=== PATIENT | male | born 1995 | race Caucasian/White ===

== ENCOUNTER 2017-01-14 13:47 | Emergency (ER) | payer BC, OTHER ==
[~2017-01-14] VITALS: Ht 177.8 cm; Wt 79.4 kg
[~2017-01-14 13:47] MED LIST: DOXY100C2 PO; MINO100C2 PO
--- NOTE | 2017-01-14 14:45 | ED GU-Male ---
General Chief Complaint: -Male Stated Complaint: ABD AND TESTICULAR PAIN Source: patient Exam Limitations: no limitations History of Present Illness Time seen by provider: 14:30 Initial Comments Here with complaint of right testicle pain that has been going on for 24 hours intermittently. Also has had 7 days of intermittent abdominal pain but that's improving. No diarrhea. Normal bowel movements for the last 3 days. Occasionally has pain when urinating. He had evaluation at [facility] a few days ago due to concerns for STDs after having a pretty wild couple days per 09 January in which she had unprotected sex. Results are pending for HIV, syphilis and Chlamydia and gonorrhea. He is concerned about torsion and cancer. Timing/Duration: yesterday Severity/Quality: mild, moderate, aching Location: scrotal Radiation: none Sexual [place] History: less than 2 months ago Associated Symptoms: abdominal pain, dysuria, No fever/chills, No mass, No nausea/vomiting, No urinary frequency Allergies and Home Medications Allergies Coded Allergies: No Known Drug Allergies (Unverified , 04/22/09) Home Medications Minocycline Hcl 100 Mg Capsule, 100 MG PO DAILY, (Reported) Constitutional: see HPI, No chills, No fever EENTM: no symptoms reported Respiratory: no symptoms reported Cardiovascular: no symptoms reported Gastrointestinal: see HPI, abdominal pain, No diarrhea, No vomiting Genitourinary: no symptoms reported Musculoskeletal: no symptoms reported All Other Systemes Reviewed Negative Unless Noted: Yes Past Cyhklav-Qfvxbh-Bpiagi Hx Patient Social History Alcohol Use: Occasionally Uses Recreational Drug Use: Yes (thc) Type Used: Smokeless Tobacco Recent Foreign Travel: No Contact w/Someone Who Travel: No Surgeries HX Surgeries: No Respiratory Hx Respiratory Disorders: No Cardiovascular Hx Cardiac Disorders: No Neurological Hx Neurological Disorders: No Genitourinary Hx Genitourinary Disorders: No Gastrointestinal Hx Gastrointestinal Disorders: No Musculoskeletal Hx Musculoskeletal Disorders: No Endocrine Hx Endocrine Disorders: No HEENT HX ENT Disorders: No Reviewed Nursing Assessment Reviewed/Agree w Nursing PMH: Yes Family Medical History Significant Family History: No Pertinent Family Hx Physical Exam Vital Signs Vital Sign - Last 12Hours 01/14/17 14:40 Temp 97.5 Pulse 70 Resp 16 B/P (MAP) 144/105 Capillary Refill : General Appearance: WD/WN, no apparent distress Neck: full range of motion, supple Cardiovascular: regular rate, rhythm, no murmur Respiratory: lungs clear, normal breath sounds Gastrointestinal: non tender, soft Male: normal genitalia, no hernia, No testicular tenderness, other (positive cremasteric reflex. No obvious swelling or masses to either testicle.) Extremities: non-tender, normal inspection Neurologic/Psychiatric: alert, oriented x 3 Skin: normal color, warm/dry Progress/Results/Core Measures Results/Orders Lab Results Laboratory Tests Test 01/14/17 14:25 Range/Units Urine Color YELLOW Urine Clarity CLEAR Urine pH 7 5-9 Urine Specific [place] 1.015 L 1.016-1.022 Urine Protein 1+ H NEGATIVE Urine Glucose (UA) NEGATIVE NEGATIVE Urine Ketones NEGATIVE NEGATIVE Urine Nitrite NEGATIVE NEGATIVE Urine Bilirubin NEGATIVE NEGATIVE Urine Urobilinogen NORMAL NORMAL MG/DL Urine Leukocyte Esterase 1+ H NEGATIVE Urine RBC (Auto) NEGATIVE NEGATIVE Urine RBC NONE /HPF Urine WBC NONE /HPF Urine Squamous Epithelial Cells 0-5 /HPF Urine Crystals NONE /LPF Urine Bacteria NEGATIVE /HPF Urine Casts NONE /LPF Urine Mucus MODERATE H /LPF Urine Culture Indicated NO My Orders Orders - JAHAIRA DOMINGUEZ MD Ua Culture If Indicated (01/14/17 14:38) Us Scrotum (Testicle) [id number] (01/14/17 14:39) Vital Signs/I&O Vital Sign - Last 12Hours 01/14/17 14:40 Temp 97.5 Pulse 70 Resp 16 B/P (MAP) 144/105 Progress Note : Progress Note Seen and evaluated. UA. Ultrasound testicles ordered. Monitor patient. 1550 : No acute findings on UA or ultrasound. Discharged home with return precautions. Patient verbalize understanding instructions and agreement with plan. Departure Impression Impression: Primary Impression: Testicular pain, right Disposition: 01 HOME, SELF-CARE Condition: Improved Departure-Patient Inst. Decision time for Depature: 15:54 Referrals: GRADY JOHNSON MD (PCP/Family) Primary Care Physician Patient Instructions: How to Perform a Testicular Self-Exam, Testicular Torsion , Adult Add. Discharge Instructions: All discharge instructions reviewed with patient and/or family. Voiced understanding. You may take ibuprofen 800 mg every 8 hours as needed for pain. Drink plenty of fluids. Rest. Avoid heavy lifting for a few days. Follow-up with your DrMakayla in a few days for recheck. Return for worse pain, fever, vomiting, swelling of the testicles or other concerns as needed. JAHAIRA DOMINGUEZ MD Jan 14, 2017 14:45
[2017-01-14 14:46] LABS: BILIRUBIN,URINE NEGATIVE (NEGATIVE); KETONES,URINE NEGATIVE (NEGATIVE); LEUKOCYTE ESTERASE ,URINE 1+ (NEGATIVE); NITRITE,URINE NEGATIVE (NEGATIVE); PH,URINE 7 (5-9); PROTEIN,URINE 1+ (NEGATIVE); UROBILINOGEN,URINE NORMAL (NORMAL)
[2017-01-14 15:02] LABS: SQUAMOUS EPITHELIAL CELL,UR 0-5 /HPF
[2017-01-14 16:13] VITALS: BP 132/90
--- NOTE | 2017-01-14 16:27 | Diagnostic Imaging Report ---
INDICATION: Right testicular pain. EXAMINATION: Scrotal ultrasound. Spectral color flow imaging of the testicles was performed. COMPARISON: There are no prior studies available for comparison. FINDINGS: Both testicles were identified. The right testicle measures 4.4 x 2.0 x 2.6 and the left testicle is estimated to be 4.0 x 2.4 x 2.6 cm. There is no evidence for a solid testicular mass and there is good blood flow to each testicle. There is no sign of torsion. There is no for epididymitis of either testicle. There is no sign of a hydrocele or varicocele either. IMPRESSION: There is no evidence for a solid testicular mass and there is no sign of torsion. Dictated by: Dictated on workstation # [id number]
--- OUTSIDE RECORDS SUMMARY | 2017-01-16 11:33 | XMS REPORT | Continuity of Care Document ---
Author Author [facility] Organization [facility] Address Unknown Phone Unavailable Allergies Active Description Code Type Severity Reaction Onset Reported/Identified Relationship to Patient Clinical Status Yes No Known Drug Allergies [id number] Drug Allergy Mild N/A 04/22/2009 Medications Problems Date Dx Coded Attending Type Code Diagnosis Diagnosed By 03/23/2010 Ot 836.2 03/23/2010 Ot 959.7 03/23/2010 Ot E000.8 03/23/2010 Ot E007.0 03/23/2010 Ot E849.4 03/23/2010 Ot E917.0 04/13/2010 Ot 850.0 04/13/2010 Ot 959.01 04/13/2010 Ot E000.8 04/13/2010 Ot E007.0 04/13/2010 Ot E849.0 04/13/2010 Ot E886.0 10/17/2014 Ot 789.00 10/17/2014 Ot 789.00 10/17/2014 Ot 789.00 10/17/2014 Ot 789.00 07/21/2015 Ot 789.00 07/21/2015 Ot 789.00 08/05/2015 Ot 789.00 08/05/2015 Ot 789.00 05/15/2016 Ot 789.00 ABDOMINAL PAIN, UNSPECIFIED SITE 05/15/2016 Ot 789.00 ABDOMINAL PAIN, UNSPECIFIED SITE Procedures Results Encounters ACCT No. Visit Date/Time Discharge Status Pt. Type Provider Facility Loc./Unit Complaint [id number] 08/24/2015 12:06:00 ACT Outpatient DREA WHITFIELD [facility] QUICK [id number] 05/12/2011 16:00:00 Document Registration [id number] 05/11/2011 11:23:00 Document Registration [id number] 04/13/2010 17:36:00 Document Registration [id number] 03/22/2010 22:03:00 Document Registration
== END 2017-01-14 16:13 | disposition home or self-care (01) ==
LOC: EDUNIT# 13:47 → ER 13:49
DX: F17.290 Nicotine dependence, other tobacco product, uncomplicated; N50.811 Right testicular pain
CPT/HCPCS: 76870; 81000; 99282